=== PATIENT | male | born 1965 | race African-American/Black ===

== ENCOUNTER 2023-12-28 12:27 | Outpatient (CLI) | payer MEDICARE, MEDICAID ==
[2023-12-28 13:35] LABS: Hematocrit 41.8 % (38.8-50.0); Hemoglobin 13.8 g/dL (13.5-17.5); Mean Corpuscular Hemoglobin 29.6 pg (27.0-33.0); Mean Corpuscular Volume 89.5 fL (81.2-95.1); Mean Platelet Volume 8.7 fL (7.4-10.4); Platelet Count 263 10x3/uL (150-450); RBC Distribution Width 13.6 % (11.5-14.5); Red Blood Cell (RBC) Count 4.67 10x6/uL (4.32-5.72); White Blood Cell (WBC) Count 6.3 10x3/uL (3.5-10.5)
[2023-12-28 13:52] LABS: Anion Gap 13 mmol/L (10-20); BUN (Urea Nitrogen) 21 mg/dL (8.4-25.7); Calc. Creatinine Clearance 0 mL/min (70-130); Calcium 9.3 mg/dL (7.8-10.44); Carbon Dioxide 25 mmol/L (22-29); Chloride 106 mmol/L (98-107); Estimated GFR 53; Glucose 96 mg/dL (70-105); Potassium 4.5 mmol/L (3.5-5.1); Sodium 139 mmol/L (136-145)
== END 2023-12-28 12:28 | disposition home or self-care (01) ==
LOC: CSHLAB 12:27
PROVIDERS: ATTEND Podiatrist Foot & Ankle Surgery
DX: Z01.818 Encounter for other preprocedural examination (principal); M67.471 Ganglion, right ankle and foot; D48.19 Other specified neoplasm of uncertain behavior of connective and other soft tissue; M25.571 Pain in right ankle and joints of right foot
CPT/HCPCS: 80048; 85027; 93005; 93010

== ENCOUNTER 2024-02-07 10:35 | Day surgery (SDC) | payer MEDICARE, MEDICAID ==
[2024-02-06 13:10] VITALS: BMI 30.5
[2024-02-07] MEDS ORDERED: CEFAZOLIN 2 GM VIAL ONE (12:23)
[2024-02-07] MEDS ORDERED: PROPOFOL 20 ML ONE ×2 (12:28→12:31)
[2024-02-07] MEDS ORDERED: Fentanyl 250 MCG/5 ML VIAL ONE (12:29)
[2024-02-07] MEDS ORDERED: Lidocaine 1% PF 5 ML VIAL ONE (12:30)
[2024-02-07] MEDS ORDERED: Bupivacaine HCl 0.5%/Epinephrine 1:200,000/PF 30 ml Vial ONE (13:04)
[2024-02-07] MEDS ORDERED: Ondansetron PF 4 MG/2 ML Vial ONE (13:29)
[2024-02-07] MEDS ORDERED: Dexamethasone 4 mg/ml Vial ONE (13:29)
== END 2024-02-07 14:50 | disposition home or self-care (01) ==
LOC: CSHSDC 10:35
PROVIDERS: ATTEND Podiatrist Foot & Ankle Surgery
PROC: 0JBN0ZZ Excision of Right Lower Leg Subcutaneous Tissue and Fascia, Open Approach (ICD-10-PCS; principal; 2024-02-07)
DX: D48.19 Other specified neoplasm of uncertain behavior of connective and other soft tissue (principal); D36.10 Benign neoplasm of peripheral nerves and autonomic nervous system, unspecified; M67.471 Ganglion, right ankle and foot; M25.571 Pain in right ankle and joints of right foot; I10 Essential (primary) hypertension; E78.5 Hyperlipidemia, unspecified; E11.9 Type 2 diabetes mellitus without complications; Z79.899 Other long term (current) drug therapy; Z98.890 Other specified postprocedural states; Z88.5 Allergy status to narcotic agent; Z88.8 Allergy status to other drugs, medicaments and biological substances
CPT/HCPCS: 28039; J1100; J2405; J2704; J3010; 88305; 88341; 88342; 88360